=== PATIENT | female | born 1975 | race Caucasian/White ===

== ENCOUNTER 2016-09-30 17:23 | Emergency (ER) | payer MEDICAID ==
[2016-09-30 17:24] VITALS: BMI 31.7
[2016-09-30 17:55] VITALS: BP 135/75; PULSE 97; TEMP 98.5
== END 2016-09-30 23:30 | disposition left against medical advice (07) ==
LOC: ED 17:23
DX: M54.9 Dorsalgia, unspecified (principal)
CPT/HCPCS: 99281